=== PATIENT | male | born 1960 | race Caucasian/White ===

== ENCOUNTER 2020-06-07 13:12 | Day surgery (SDC) | payer OTHER ==
[~2020-06-07] VITALS: Ht 185.4 cm; Wt 84.1 kg
[~2020-06-07 13:12] MED LIST: CEPH500 PO; FLONASE ALLERG9.9 M2; SULTRIDS PO; TRAM50 PO
[2020-06-07] MEDS ORDERED: IBUP100S (13:53)
== END 2020-06-07 15:07 | disposition home or self-care (01) ==
LOC: ORSCSDS 13:12
PROVIDERS: Surgery
PROC: 0DBL8ZX Excision of Transverse Colon, Via Natural or Artificial Opening Endoscopic, Diagnostic (ICD-10-PCS; principal; 2020-06-07 14:30)
PROC: 0DBK8ZX Excision of Ascending Colon, Via Natural or Artificial Opening Endoscopic, Diagnostic (ICD-10-PCS; principal; 2020-06-07 14:30)
DX: Z12.11 Encounter for screening for malignant neoplasm of colon (principal); Z86.010 Personal history of colon polyps; D12.3 Benign neoplasm of transverse colon; D12.2 Benign neoplasm of ascending colon; I10 Essential (primary) hypertension; K21.9 Gastro-esophageal reflux disease without esophagitis; F17.210 Nicotine dependence, cigarettes, uncomplicated; Z79.899 Other long term (current) drug therapy
CPT/HCPCS: 88305; J2704; J7120

== ENCOUNTER 2024-07-31 14:38 | Inpatient (IN) | payer OTHER ==
[~2024-07-31] VITALS: Ht 185.4 cm; Wt 85.8 kg
[~2024-07-31 14:38] MED LIST changes: +IBUP100S
[2024-07-31 15:15] LABS: BASOPHILS ABSOLUTE AUTO 0.04 K/mm3 (0.00-0.23); BASOPHILS PERCENT AUTO 0 % (0-2); EOSINOPHILS ABSOLUTE AUTO 0.08 K/mm3 (0.00-0.68); EOSINOPHILS PERCENT AUTO 1 % (0-6); Hematocrit 46.2 % (37.0-53.0); Hemoglobin 16.2 g/dL (13.5-17.5); IMMATURE GRAN ABSOLUTE AUTO 0.02 K/mm3 (0.00-0.10); IMMATURE GRAN PERCENT AUTO 0 % (0-1); LYMPHOCYTES ABSOLUTE AUTO 2.79 K/mm3 (0.84-5.20); LYMPHOCYTES PERCENT AUTO 28 % (21-46); MONOCYTES ABSOLUTE AUTO 1.17 K/mm3 (0.16-1.47); MONOCYTES PERCENT AUTO 12 % (4-13); Mean Corpuscular HGB 32.5 pg (26.0-34.0); Mean Corpuscular HGB Conc 35.1 g/dL (31.5-36.5); Mean Corpuscular Volume 93 fL (80-100); Mean Platelet Volume 10.2 fL (9.1-12.4); NEUTROPHILS ABSOLUTE AUTO 5.86 K/mm3 (1.96-9.15); NEUTROPHILS PERCENT AUTO 59 % (41-73); Platelet Count 188 K/mm3 (150-400); RDW Coefficient Variation 12.5 % (11.7-14.2); RDW Standard Deviation 42.7 fL (35.1-46.3); Red Blood Cell Count 4.98 M/mm3 (4.30-5.90); White Blood Cell Count 9.96 K/mm3 (4.00-11.30)
[2024-07-31 15:36] LABS: Albumin, Blood 4.1 g/dL (3.4-5.0); Albumin/Globulin Ratio 1.1 (0.8-1.8); Bilirubin, Total 1.1 mg/dL (0.1-1.0); Bun/Creatinine Ratio 9.9 (12.0-20.0); Calcium, Blood 9.9 mg/dL (8.5-10.1); Creatinine, Blood 0.6 mg/dL (0.60-1.20); Globulin, Blood 3.7 g/dL (2.2-4.0); Total Protein, Blood 7.8 g/dL (6.4-8.2)
[2024-07-31] MEDS ORDERED: NS 1,000 ML IV SCH ×2 (15:45→17:30)
[2024-07-31] MEDS ORDERED: Ondansetron HCl 2 MG / ML 2ML Vial IV PRN (17:30)
[2024-07-31] MEDS ORDERED: Aspirin 81 MG Chew PO ONE (17:30)
[2024-07-31] MEDS ORDERED: FLU VACC TS2024-25(6MOS UP)/PF 45 MCG/0.5 ML SYRINGE IM ONE (17:30)
[2024-07-31] MEDS ORDERED: Albuterol 2.5 MG/3 ML VIAL INH PRN (17:35)
[2024-07-31] MEDS ORDERED: Prinivil10 MG PO (17:57)
[2024-07-31] MEDS ORDERED: FLUTICASONE PRO16 GM (17:57)
[2024-07-31] MEDS ORDERED: ALEN10 PO (17:57)
[2024-07-31 18:02] VITALS: BP 187/100
[2024-07-31] MEDS ORDERED: CETI5 PO (18:17)
[2024-07-31 18:39] VITALS: BP 159/103
--- NOTE | 2024-07-31 18:43 | NUR ---
PT ARRIVED TO U 19 ABOUT 1800 WHEN THE PT WAS TRANSFERING FROM [facility] TO [facility] HE WAS UNSTEADY ON HIS FEET. HE IS A 1P SBA. HE VOIDED 1000CC'S WHEN ARRIVING TO THE ROOM. HE IS ON RA W/ SP02 >90%. HR SR 80'S-90'S. THE PT'S BP IS HYPERTENSIVE; DR. AVILES STATED TO NOTIFY HIM IF THE SBP >220. FLUIDS WERE D/C'D BECAUSE THE PT HAD GOOD ORAL INTAKE. ASPRIN GIVEN PER ORDER WHEN ARRIVING TO U. THE PT IS A 1-2PACK OF CIGERETTS A DAY. HE DENIES A NICOTINE PATCH AT THIS TIME. HIS AUTISM TEACHER AND CIG'S WERE SENT HOME WITH HIS WHILE IN THE ER.. THE PT STATED HE IS A DAILY DRINKER AND HAS ABOUT EIGHT BEERS AND TWO SHOTS OF PEE A DAY. HIS LAST DRINK WAS REPORTED TO BE 11/3 0000. THE PT HAS STATED THAT HE IS HAVING NO HEADACHE, VISUAL CHANGES, AND NO SPEECH OR COGNITIVE DEFICITS NOTED. MED LIST RECONCILLED. BED IN LOW, BED ALARM ON, CALL LIGHT IN REACH. SEE NOTES FOR ANY UPDATES.
[2024-07-31 20:41] VITALS: BP 150/81
[2024-08-01 00:13] VITALS: BP 131/74
[2024-08-01 03:58] LABS: Hematocrit 43.8 % (37.0-53.0); Hemoglobin 14.9 g/dL (13.5-17.5); Mean Corpuscular HGB 32.2 pg (26.0-34.0); Mean Corpuscular Volume 95 fL (80-100); Mean Platelet Volume 10.4 fL (9.1-12.4); Platelet Count 177 K/mm3 (150-400); RDW Coefficient Variation 12.7 % (11.7-14.2); RDW Standard Deviation 44.3 fL (35.1-46.3); Red Blood Cell Count 4.63 M/mm3 (4.30-5.90); White Blood Cell Count 8.97 K/mm3 (4.00-11.30)
[2024-08-01 04:11] LABS: International Normalized Ratio 0.95; Prothrombin Time Results 10.2 Sec (9.7-11.5)
[2024-08-01 04:16] LABS: Alanine Aminotransfer (ALT/SGP 74 U/L (12-78); Albumin, Blood 3.3 g/dL (3.4-5.0); Alk Phos 66 U/L (50-136); Anion Gap 8 mmol/L (3-11); Aspartate Aminotrans (AST/SGOT 42 U/L (12-37); Bilirubin, Total 0.8 mg/dL (0.1-1.0); Blood Urea Nitrogen 6 mg/dL (8-24); Bun/Creatinine Ratio 9.4 (12.0-20.0); CHOL/HDL RATIO 1.4; CO2, Blood 28 mmol/L (21-32); Calcium, Blood 9.1 mg/dL (8.5-10.1); Chloride, Blood 107 mmol/L (98-108); Cholesterol 165 mg/dL (50-200); Creatinine, Blood 0.64 mg/dL (0.60-1.20); Globulin, Blood 3.3 g/dL (2.2-4.0); Glomerular Filtration Rate 106 (60-); Glucose, Blood 88 mg/dL (70-99); HDL Cholesterol 117 mg/dL (>39); LDL/HDL RATIO 0.3; Low Density Lipoprotein Chol 35 mg/dL (0-110); Magnesium, Blood 1.8 mg/dL (1.6-2.4); Potassium, Blood 4.2 mmol/L (3.5-5.5); Sodium, Blood 139 mmol/L (136-145); Total Protein, Blood 6.6 g/dL (6.4-8.2); Triglycerides 65 mg/dL (30-160); Very Low Density Lipoprot Chol 13 mg/dL (6-32)
[2024-08-01 04:31] VITALS: BP 140/75
--- NOTE | 2024-08-01 06:36 | NUR ---
PT REMAINED STABLE THROUGHOUT THE SHIFT, NO NEURO DEFICITS NOTED. PT WAS ABLE TO AMBULATE TO BR INDEPENDENTLY WITH NURSING STAFF THERE FOR SAFETY. PT REMAINS AOX4, MOVES ALL EXTREMITIES WELL. PT HAS NOT REQUIRED NICOTINE REPLACEMENT OR SHOWN ANY CIWA SIGNS AT THIS TIME. NEURO CHECKS DONE Q4 HOURS.
[2024-08-01 08:20] VITALS: BP 129/84
[2024-08-01] MEDS ORDERED: Folic Acid 1 MG TAB PO SCH (09:00)
[2024-08-01] MEDS ORDERED: Atorvastatin 40 MG Tab PO SCH (09:00)
[2024-08-01] MEDS ORDERED: Aspirin 81 MG Chew PO SCH (09:00)
[2024-08-01] MEDS ORDERED: Thiamine HCl 100 MG Tab PO SCH (09:00)
[2024-08-01] MEDS ORDERED: Enoxaparin 40 MG/0.4 ML SYR SC SCH (09:00)
[2024-08-01] MEDS ORDERED: Multivitamins 1 Tab PO SCH (09:00)
--- NOTE | 2024-08-01 13:41 | NUR ---
ASSUMED CARE OF PT AT 0700 THIS AM. NO ACUTE EVENTS REPORTED OVERNIGHT. NO NEUROLOGICAL DEFICITS NOTED, SEE DOCUMENTED ASSESSMENT AND VS. ABD AND CAROTID US COMPLETED, MRI DONE, AND ECHO COMPLETED THIS AFTERNOON. PT HAS HAD NO COMPLAINTS OR CONCERNS. PT IS ABLE TO USE CALL LIGHT FOR NEEDS. BED IN LOWEST LOCKED POSITION. WILL CONTINUE TO MONITOR.
[2024-08-01 13:50] VITALS: BP 140/90
[2024-08-01] MEDS ORDERED: Fluticasone 0.05% Nasal Spray PRN (13:50)
[2024-08-01] MEDS ORDERED: Misc. Tablet PO PRN (14:00)
[2024-08-01 16:38] VITALS: BP 145/84
[2024-08-01] MEDS ORDERED: Clopidogrel Bisulfate 75 MG Tab PO SCH (17:00)
--- NOTE | 2024-08-01 18:10 | NUR ---
NO CHANGES SINCE LAST NOTE. ALL ORDERED IMAGING COMPLETED TODAY. PT HAS BEEN RESTING COMFORTABLY IN BED, C/O MILD HEADACH THIS EVENING, WILL CALL RESIDENT FOR ORDERS. NO OTHER COMPLAINTS. BED IN LOWEST, LOCKED POSITION AND CALL LIGHT IN REACH, WILL CONTINUE TO MONITOR AND GIVE REPORT TO NOC SHIFT RN.
[2024-08-01] MEDS ORDERED: Acetaminophen 325 MG TABLET PO PRN (18:15)
[2024-08-01 19:58] VITALS: BP 132/76
[2024-08-02 00:28] VITALS: BP 152/93
[2024-08-02 03:44] LABS: Hemoglobin 14.9 g/dL (13.5-17.5); Mean Corpuscular HGB 32.5 pg (26.0-34.0); Mean Corpuscular HGB Conc 34.7 g/dL (31.5-36.5); Mean Corpuscular Volume 94 fL (80-100); Mean Platelet Volume 10.3 fL (9.1-12.4); Platelet Count 174 K/mm3 (150-400); RDW Coefficient Variation 12.5 % (11.7-14.2); RDW Standard Deviation 43.2 fL (35.1-46.3); Red Blood Cell Count 4.58 M/mm3 (4.30-5.90); White Blood Cell Count 8.44 K/mm3 (4.00-11.30)
[2024-08-02 04:05] LABS: Calcium, Blood 9.4 mg/dL (8.5-10.1); Creatinine, Blood 0.67 mg/dL (0.60-1.20); Potassium, Blood 4.1 mmol/L (3.5-5.5)
[2024-08-02 05:08] VITALS: BP 135/85
--- NOTE | 2024-08-02 07:01 | NUR ---
PT STABLE THROUGHOUT THE SHIFT. NO ACUTE CHANGES. PT AOX4, ABLE TO AMBULATE INDEPENDENTLY WITH GOOD SAFETY AWARENESS. NO SIGNIFICANT CIWAS AND NO NEURO CHANGES.
[2024-08-02 07:22] VITALS: BP 139/91
[2024-08-02] MEDS ORDERED: Carvedilol 3.125 MG Tab PO SCH (08:00)
[2024-08-02] MEDS ORDERED: Clopidogrel Bisulfate 75 MG Tab PO SCH (09:00)
[2024-08-02] MEDS ORDERED: Lisinopril 10 MG Tab PO SCH (09:00)
[2024-08-02] MEDS ORDERED: Misc. Tablet PO SCH (09:00)
[2024-08-02 12:03] VITALS: BP 119/77
[2024-08-02] MEDS ORDERED: Nicotine 21 MG PATCH TOP SCH (14:05)
[2024-08-02] MEDS ORDERED: ChlordiazePOXIDE 25 MG Cap PO PRN ×2 (15:20→15:25)
[2024-08-02] MEDS ORDERED: Loperamide HCl 2 MG Cap PO PRN ×2 (15:20→15:25)
[2024-08-02] MEDS ORDERED: LORazepam 2 MG/ML 1ML Injection IV PRN ×2 (15:25)
[2024-08-02 16:11] VITALS: BP 121/80
--- NOTE | 2024-08-02 17:42 | NUR ---
SHIFT SUMMARY PT IS ALERT AND ORIENTED X 4, HE ANSWERS QUESTIONS APPROPRIATELY AND IS ABLE TO MAKE HIS NEEDS KNOWN. HE IS A SBA TO BATHROOM AND CALLS APPROPRIATELY, HE IS BIG SANDY. VSS. HE HAS DENIED FEELINGS OF CHEST PAIN/PRESSURE, LIGHTHEADEDNESS/DIZZINES, SOB WELL FEELINGS OF NAUSEA/VOMITTING. THE PT WAS EDUCATED BY THIS RN REGARDING ALCOHOL WITHDRAWAL AND NEED TO NOTIFY STAFF IF ANY CHANGES OCCUR, PLEASE SEE CIWA SCORING FOR ALCOHOL WITHDRAWAL ASSESSMENTS. THE PT VERBALIZED UNDERSTANDING OF ALCOHOL WITHDRAWAL SIGNS AND SYMPTOMS AND REPORTED WILLINGNESS TO NOTIFY STAFF IF HE FEELS THAT HE IS STARTING TO WITHDRAWAL. HE DENIED FEELINGS OF PAIN DURING SHIFT. PT REPORTED THAT LAST DRINK WAS 07/30/2024. PT IS CURRENTLY SITTING UP IN CHAIR, CALL LIGHT IS W/IN REACH.
[2024-08-02 20:25] VITALS: BP 132/90
[2024-08-02] MEDS ORDERED: Gabapentin 300 MG Cap PO PRN (21:00)
[2024-08-03 00:18] VITALS: BP 123/77
[2024-08-03 03:31] VITALS: BP 114/84
[2024-08-03 04:04] LABS: BASOPHILS ABSOLUTE AUTO 0.08 K/mm3 (0.00-0.23); BASOPHILS PERCENT AUTO 1 % (0-2); EOSINOPHILS ABSOLUTE AUTO 0.17 K/mm3 (0.00-0.68); EOSINOPHILS PERCENT AUTO 2 % (0-6); Hematocrit 44.1 % (37.0-53.0); Hemoglobin 14.9 g/dL (13.5-17.5); IMMATURE GRAN ABSOLUTE AUTO 0.02 K/mm3 (0.00-0.10); IMMATURE GRAN PERCENT AUTO 0 % (0-1); LYMPHOCYTES ABSOLUTE AUTO 2.45 K/mm3 (0.84-5.20); LYMPHOCYTES PERCENT AUTO 27 % (21-46); MONOCYTES ABSOLUTE AUTO 1.11 K/mm3 (0.16-1.47); MONOCYTES PERCENT AUTO 12 % (4-13); Mean Corpuscular HGB 32.3 pg (26.0-34.0); Mean Corpuscular HGB Conc 33.8 g/dL (31.5-36.5); Mean Corpuscular Volume 96 fL (80-100); Mean Platelet Volume 10.1 fL (9.1-12.4); NEUTROPHILS ABSOLUTE AUTO 5.18 K/mm3 (1.96-9.15); NEUTROPHILS PERCENT AUTO 58 % (41-73); Platelet Count 193 K/mm3 (150-400); RDW Coefficient Variation 12.5 % (11.7-14.2); RDW Standard Deviation 44.1 fL (35.1-46.3); Red Blood Cell Count 4.62 M/mm3 (4.30-5.90); White Blood Cell Count 9.01 K/mm3 (4.00-11.30)
[2024-08-03 04:29] LABS: Albumin, Blood 3.4 g/dL (3.4-5.0); Albumin/Globulin Ratio 0.9 (0.8-1.8); Bilirubin, Total 0.8 mg/dL (0.1-1.0); Bun/Creatinine Ratio 12.3 (12.0-20.0); Calcium, Blood 9.5 mg/dL (8.5-10.1); Creatinine, Blood 0.73 mg/dL (0.60-1.20); Globulin, Blood 3.9 g/dL (2.2-4.0); Total Protein, Blood 7.3 g/dL (6.4-8.2)
--- NOTE | 2024-08-03 06:31 | NUR ---
PT STABLE THROUGHOUT THE SHIFT. PT REMAINS AOX4, NO NEURO DEFICITS. NO C/O CP OR SOB. VITAL SIGNS WNL. PT HAD HIGHEST CIWA OF 1 D/T FINE TREMOR IN FINGER TIPS. NO AGITATION OR ANXIETY. PT MADE NPO AT MIDNIGHT FOR STRESS TEST TODAY. PT STEADY ON FEET AND CALLS WHEN NEEDING TO AMBULATE TO BR. PT HAD GOOD URINE OUTPUT.
[2024-08-03] MEDS ORDERED: Regadenoson 0.4 MG/5 ML SYRINGE ONE (07:29)
[2024-08-03] MEDS ORDERED: Caffeine Citrated 60 MG/3 ML Vial ONE (07:29)
[2024-08-03 08:00] VITALS: BP 119/79
[2024-08-03 12:44] VITALS: BP 110/75
--- NOTE | 2024-08-03 14:20 | NUR ---
CALL PLACED TO BUT RESIDENT FAYE ANSWERED, THIS RN GAVE RESULTS FROM STRESS TEST DONE THIS MORNING AND RESIDENT STATED HE IS GOOD TO DISCHARGE AND ORDERS WILL BE PLACED. PT NOTIFIED AND PT STARTED GETTING DRESSED.
[2024-08-03] MEDS ORDERED: ASPI81CH PO (14:35)
[2024-08-03] MEDS ORDERED: CARV3.125 PO (14:35)
[2024-08-03] MEDS ORDERED: ATOR80 PO (14:35)
[2024-08-03] MEDS ORDERED: CLOP75 PO (14:37)
[2024-08-03] MEDS ORDERED: B-1100 M2 PO (14:37)
--- NOTE | 2024-08-03 15:14 | NUR ---
DISCHARGE SUMMARY: PATIENT IS ALERT AND ORIENTED X4 AND ACTIE IN HIS CARE. SATTING >92% ON ROOM AIR AND WAS ON TELE SHOWING SINUS WITH RATE IN 60'S. WENT OVER DISCHARGE INFORMATION AND PATIENT KNOWS TO FOLLOW UP WITH PRIMARY CARE PROVDER WITHIN 1 WK AND TO FOLLOW UP WITH VASCULAR AND ABDOMINAL. MEDICATIONS SENT TO [facility] AND PATIENT AWARE OF NEW MEDICATIONS THAT WILL BE STARTED AND TO TAKE PLAVIX FOR5 18DAYS WITH THE EXACT DATE TO STOP. TELE TAKEN OFF, IV TAKEN OUT AND WHEELED OUT BY PATIENT INSTRUCTOR BUS TROLLEY AND TAXI WITH ALL BELONGINGS AND DISCHARGE PAPERWORK.
== END 2024-08-03 15:02 | disposition home or self-care (01) | DRG 64 ==
LOC: ER 14:38 → PCU 14:39 → ER 14:39 → PCU 14:39
PROVIDERS: Emergency Medicine; Family Medicine; Nurse Practitioner Acute Care; ADMIT Internal Medicine
DX: I63.9 Cerebral infarction, unspecified (principal); I21.4 Non-ST elevation (NSTEMI) myocardial infarction; G81.93 Hemiplegia, unspecified affecting right nondominant side; I65.21 Occlusion and stenosis of right carotid artery; K76.0 Fatty (change of) liver, not elsewhere classified; E04.1 Nontoxic single thyroid nodule; R29.704 NIHSS score 4; F17.210 Nicotine dependence, cigarettes, uncomplicated; I10 Essential (primary) hypertension; F10.20 Alcohol dependence, uncomplicated; J42 Unspecified chronic bronchitis; M81.0 Age-related osteoporosis without current pathological fracture; Z79.811 Long term (current) use of aromatase inhibitors; R74.01 Elevation of levels of liver transaminase levels; Z98.890 Other specified postprocedural states
CPT/HCPCS: 36415; 70450; 70551; 71045; 76705; 78452; 80048; 80053; 80061; 83036; 83690; 83735; 83880; 84443; 84484; 85025; 85027; 85610; 93005; 93010; 93017; 93306; 93880; 94760; 96360; 96372; 99285-25; A9270; A9500; G0378; J0706; J1650; J2785; J7030